=== PATIENT | female | born 1955 | race Caucasian/White ===

== ENCOUNTER 2017-12-31 09:38 | Outpatient (CLI) | payer OTHER | END 2017-12-31 09:39 | disposition home or self-care (01) | LOC: BICMAMMO 09:38 | PROVIDERS: ATTEND Family Medicine | DX: Z12.31 Encounter for screening mammogram for malignant neoplasm of breast (principal); R92.1 Mammographic calcification found on diagnostic imaging of breast; Z80.3 Family history of malignant neoplasm of breast | CPT/HCPCS: 77063; 77067 ==

== ENCOUNTER 2019-01-01 14:25 | Outpatient (CLI) | payer OTHER ==
--- NOTE | 2019-01-01 15:54 | BD ---
Exam: DEXA Bone Density 01/01/19 PROVIDED CLINICAL HISTORY: Osteopenia. FINDINGS: Lumbar Spine: BMD (g/cm2) T-SCORE L1 0.814 -1.6 L2 0.829 -1.8 L3 1.026 -0.5 L4 0.9 -1.5 L1-L4 0.891 -1.4 Femoral Neck: 0.602 -2.2 Total Femur: 0.758 -1.5 Impression: Calculated bone mineral density meets WHO criteria for osteopenia and places the patient at increased risk for fracture. POS: [facility]
--- NOTE | 2019-01-07 06:44 | MMO ---
Bilateral MAMMO Bilat Screen [facility]. CLINICAL HISTORY: Patient is 63 years old and is seen for screening. The patient has the following family history of breast cancer: mother, at age 37. The patient has a history of Skin cancer at age 49. The patient has a history of mastopexy and Breast reduction - NIPPLES RE-SIZED. VIEWS: The views performed were: bilateral craniocaudal with tomosynthesis and bilateral mediolateral oblique with tomosynthesis. FILMS COMPARED: The present examination has been compared to a prior imaging study performed at [facility] on 12/31/2017. MAMMOGRAM FINDINGS: There are scattered fibroglandular densities. There are no suspicious masses, suspicious calcifications, or new areas of architectural distortion. IMPRESSION: THERE IS NO MAMMOGRAPHIC EVIDENCE OF MALIGNANCY. A ROUTINE FOLLOW-UP MAMMOGRAM IN 1 YEAR IS RECOMMENDED. THE RESULTS OF THIS EXAM WERE SENT TO THE PATIENT. ACR BI-RADS Category 1 - Negative MAMMOGRAPHY NOTE: 1. A negative mammogram report should not delay a biopsy if a dominant of clinically suspicious mass is present. 2. Approximately 10% to 15% of breast cancers are not detected by mammography. 3. Adenosis and dense breasts may obscure an underlying neoplasm. Reported by: PURNIMA SALAZAR MD Electonically Signed: [id number]
== END 2019-01-01 14:26 | disposition home or self-care (01) ==
LOC: BICMAMMO 14:25
PROVIDERS: ATTEND Family Medicine
DX: Z12.31 Encounter for screening mammogram for malignant neoplasm of breast (principal); M85.89 Other specified disorders of bone density and structure, multiple sites; Z78.0 Asymptomatic menopausal state; Z80.3 Family history of malignant neoplasm of breast; Z85.828 Personal history of other malignant neoplasm of skin; Z98.890 Other specified postprocedural states
CPT/HCPCS: 77063; 77067; 77080

== ENCOUNTER 2021-07-20 10:00 | Outpatient (CLI) | payer MEDICARE, BC | END 2021-07-20 10:01 | disposition home or self-care (01) | LOC: BICMAMMO 10:00 | PROVIDERS: ATTEND Family Medicine | DX: Z13.820 Encounter for screening for osteoporosis (principal); N95.1 Menopausal and female climacteric states; M81.0 Age-related osteoporosis without current pathological fracture; M85.88 Other specified disorders of bone density and structure, other site | CPT/HCPCS: 77080 ==